=== PATIENT | male | born 1985 ===

== ENCOUNTER 2025-01-01 07:21 | Day surgery (SDC) | payer OTHER ==
[2024-12-25 11:01] VITALS: BP 145/94
[~2025-01-01] VITALS: Ht 182.9 cm; Wt 98.0 kg
[2025-01-01] MEDS ORDERED: CEFTRIAXONE SODIUM 2,000 MG VIAL ONE (10:02)
[2025-01-01] MEDS ORDERED: METRONIDAZOLE/SODIUM CHLORIDE 500 MG/100 ML PIGGYBACK IV ONE (10:05)
[2025-01-01] MEDS ORDERED: DIBUCAINE 30 GM TUBE ONE (11:23)
[2025-01-01] MEDS ORDERED: BUPIVACAINE HCL/MPF 0.5% 30ML VIAL ONE (11:23)
[2025-01-01] MEDS ORDERED: LIDOCAINE HCL 1%/EPINEPHRINE 20ML VIAL IJ ONE (11:24)
[2025-01-01] MEDS ORDERED: POVIDONE-IODINE 118 ML BOTT TOP ONE (11:24)
[2025-01-01] MEDS ORDERED: BUPIVACAINE LIPOSOME/PF 266 MG/20 ML VIAL IJ ONE (11:24)
[2025-01-01] MEDS ORDERED: HEMOSTATIC MATRIX 1 KIT KIT TOP ONE (11:24)
== END 2025-01-01 17:25 | disposition home or self-care (01) ==
LOC: CIR.AMB 07:21
PROVIDERS: ATTEND Colon & Rectal Surgery
DX: K60.321 Anal fistula, complex, initial (principal)

== ENCOUNTER 2025-04-16 09:00 | Day surgery (SDC) | payer OTHER ==
[2025-04-09 11:53] VITALS: BP 142/100
[~2025-04-16] VITALS: Ht 182.9 cm; Wt 98.0 kg
[2025-04-16] MEDS ORDERED: CEFTRIAXONE SODIUM 2,000 MG VIAL ONE (10:57)
[2025-04-16] MEDS ORDERED: METRONIDAZOLE/SODIUM CHLORIDE 500 MG/100 ML PIGGYBACK IV ONE (10:57)
[2025-04-16] MEDS ORDERED: BUPIVACAINE HCL/MPF 0.5% 30ML VIAL ONE (13:19)
[2025-04-16] MEDS ORDERED: DIBUCAINE 30 GM TUBE ONE (13:19)
[2025-04-16] MEDS ORDERED: HEMOSTATIC MATRIX 1 KIT KIT TOP ONE (13:19)
[2025-04-16] MEDS ORDERED: LIDOCAINE HCL 1%/EPINEPHRINE 20ML VIAL IJ ONE (13:19)
== END 2025-04-16 19:15 | disposition home or self-care (01) ==
LOC: CIR.AMB 09:00
PROVIDERS: ATTEND Colon & Rectal Surgery
DX: K60.321 Anal fistula, complex, initial (principal); K60.50 Anorectal fistula, unspecified